=== PATIENT | male | born 1985 | race Caucasian/White ===

== ENCOUNTER 2018-03-24 15:48 | Emergency (ER) | payer BC ==
[2018-03-24] MEDS ORDERED: HYDROCODONE/APAP 5/325 MG TAB ONE (17:44)
[2018-03-24] MEDS ORDERED: HYDROCODONE/APAP 7.5/325 MG TAB ONE (17:45)
[2018-03-24 18:16] LABS: Absolute Lymphocytes (CBC) 2.2 K/uL (0.7-4.9); Absolute Monocytes 1.1 K/uL (0.1-1.3); Absolute Neutrophil 10.7 K/uL (1.8-8.0); Basophils % 0.7 % (0-1.3); Eosinophils % 1.9 % (0-4.4); MCH 29.9 pg (27.0-35.0); MCV 88.6 fL (80-100); MPV 8.1 fL (7.6-11.3); Monocytes % 7.9 % (3.3-12.3); RBC Red Blood Cell Count 4.74 M/uL (4.33-5.43)
[2018-03-24 18:19] LABS: BUN Blood Urea Nitrogen 11 mg/dL (7-18); Bicarbonate 30 mmol/L (21-32); Creatine Phosphokinase 104 U/L (39-308); Glucose Level 65 mg/dL (74-106); Potassium 4.3 mmol/L (3.5-5.1); Sodium Level 140 mmol/L (136-145)
--- NOTE | 2018-03-24 18:52 | ER ---
Nurse's Notes [facility] Name: Albert Geronimo Age: 32 yrs Sex: Male : 1985 Arrival Date: 03/24/2018 Time: 15:52 Bed 12 Private MD: None, None Diagnosis: Pain in left leg;Pain in right leg Presentation: 03/24 15:58 Presenting complaint: Patient states: Swelling to bilateral calves since last night. aj reports that the swelling has improved significantly today after she treated the patient with essential oils. Bilateral lower legs appear to have little to no swelling or redness. Transition of care: patient was not received from another setting of care. Onset of symptoms was March 23, 2018. Risk Assessment: Do you want to hurt yourself or someone else? Patient reports no desire to harm self or others. Initial Sepsis Screen: Does the patient meet any 2 criteria? No. Patient's initial sepsis screen is negative. Does the patient have a suspected source of infection? No. Patient's initial sepsis screen is negative. Care prior to arrival: None. 15:58 Method Of Arrival: Ambulatory 15:58 Acuity: AMILCAR 4 Triage Assessment: 16:00 General: Appears in no apparent distress. comfortable, Behavior is calm, cooperative, aj appropriate for age. Pain: Complains of pain in right calf and left calf. Neuro: Level of Consciousness is awake, alert, obeys commands, Oriented to person, place, time, situation, Appropriate for age. Respiratory: Airway is patent Respiratory effort is even, unlabored, Respiratory pattern is regular, symmetrical. Derm: Skin is intact, is healthy with good turgor, Skin is pink, warm \T\ dry. normal. Historical: - Allergies: 16:00 No Known Allergies; aj - Home Meds: 16:00 None [Active]; aj - PMHx: 16:00 None; aj - PSHx: 16:00 None; aj - Immunization history:: Adult Immunizations up to date. - Social history:: Smoking status: Patient uses tobacco products, smokes one pack cigarettes per day. Patient uses alcohol, on a daily basis. - Ebola Screening: : Patient negative for fever greater than or equal to 101.5 degrees Fahrenheit, and additional compatible Ebola Virus Disease symptoms Patient denies exposure to infectious person Patient denies travel to an Ebola-affected area in the 21 days before illness onset No symptoms or risks identified at this time. Screenin:55 Abuse screen: Denies threats or abuse. Denies injuries from another. Nutritional iw screening: No deficits noted. Tuberculosis screening: No symptoms or risk factors identified. Fall Risk IV access (20 points). Assessment: 17:30 General: Appears in no apparent distress. Behavior is calm, cooperative. Pain: iw Complains of pain in right leg and left leg. Neuro: Level of Consciousness is awake, alert, obeys commands, Oriented to person, place, time, Moves all extremities. Full function. Cardiovascular: Patient's skin is warm and dry. Respiratory: Respiratory effort is even, unlabored, Respiratory pattern is regular, symmetrical. GI: Abdomen is non-distended. Derm: Skin is intact, is healthy with good turgor. Musculoskeletal: Range of motion: intact in all extremities. 18:48 Reassessment: Patient appears in no apparent distress at this time. Patient and/or iw family updated on plan of care and expected duration. Pain level reassessed. Patient is alert, oriented x 3, equal unlabored respirations, skin warm/dry/pink. Vital Signs: 16:00 BP 98 / 71; Pulse 108; Resp 17; Temp 98.8; Pulse Ox 99% on R/A; Weight 74.84 kg; Height aj 6 ft. 4 in. (193.04 cm); 18:48 BP 124 / 87; Pulse 98; Resp 16; Pulse Ox 98% ; Pain 5/10; iw 16:00 Body Mass Index 20.08 (74.84 kg, 193.04 cm) ED Course: 15:52 Patient arrived in ED. mr 15:53 None, None is Private Physician. mr 15:59 Triage completed. aj 16:00 Arm band placed on right wrist. Patient placed in waiting room, Patient notified of aj wait time. 16:00 Patient has correct armband on for positive identification. iw 16:50 Bradley Kee MD is Attending Physician. kdr 17:15 Georgina Olivares, RN is Primary Nurse. iw 18:59 No provider procedures requiring assistance completed. IV discontinued, intact, iw bleeding controlled, No redness/swelling at site. Pressure dressing applied. Administered Medications: 17:46 Drug: [place] (7.5 mg-325 mg) 1 tabs Route: PO; iw Outcome: 18:51 Discharge ordered by . kdr 18:59 Discharged to home ambulatory, with family. iw 18:59 Condition: good 18:59 Discharge instructions given to patient, family, Instructed on discharge instructions, follow up and referral plans. medication usage, Demonstrated understanding of instructions, follow-up care, medications, Prescriptions given X 2. 19:00 Patient left the ED. iw Signatures: Leah Nowak RN RN Bradley Levine MD MD kdr Barajas Juliet Georgina Childers RN RN iw Corrections: (The following items were deleted from the chart) 19:33 19:33 Patient left the ED. iw iw
--- NOTE | 2018-03-24 18:52 | EDPHYS ---
Physician Documentation [facility] Name: Albert Geronimo Age: 32 yrs Sex: Male : 1985 Arrival Date: 03/24/2018 Time: 15:52 Bed 12 Private MD: None, None ED Physician Bradley Kee HPI: 03/25 12:45 This 32 yrs old Male presents to ER via Ambulatory with complaints of Leg kdr Swelling. 12:45 The patient presents with pain, that is acute. The complaints affect the left calf, kdr right calf. Context: No known injury or precipitating events!. 12:46 Onset: The symptoms/episode began/occurred last night. Modifying factors: The symptoms kdr are alleviated by nothing. the symptoms are aggravated by movement, weight bearing. Associated signs and symptoms: Pertinent positives: calf tenderness, Pertinent negatives fever, nausea, numbness, rash, swelling, vomiting, warmth, weakness. Treatment prior to arrival includes: over the counter medications. Severity of symptoms: At their worst the symptoms were moderate, in the emergency department the symptoms are unchanged. The patient has not experienced similar symptoms in the past. The patient has not recently seen a physician. Historical: - Allergies: 03/24 16:00 No Known Allergies; aj - Home Meds: 16:00 None [Active]; aj - PMHx: 16:00 None; aj - PSHx: 16:00 None; aj - Immunization history:: Adult Immunizations up to date. - Social history:: Smoking status: Patient uses tobacco products, smokes one pack cigarettes per day. Patient uses alcohol, on a daily basis. - Ebola Screening: : Patient negative for fever greater than or equal to 101.5 degrees Fahrenheit, and additional compatible Ebola Virus Disease symptoms Patient denies exposure to infectious person Patient denies travel to an Ebola-affected area in the 21 days before illness onset No symptoms or risks identified at this time. ROS: 03/25 12:46 Constitutional: Negative for fever, chills, and weight loss, Eyes: Negative for injury, kdr pain, redness, and discharge, Neck: Negative for injury, pain, and swelling, Cardiovascular: Negative for chest pain, palpitations, and edema. MS/extremity: Positive for pain, tenderness, of the right calf and left calf. Exam: 12:46 Constitutional: This is a well developed, well nourished patient who is awake, alert, kdr and in no acute distress. Head/Face: Normocephalic, atraumatic. Eyes: Pupils equal round and reactive to light, extra-ocular motions intact. Lids and lashes normal. Conjunctiva and sclera are non-icteric and not injected. Cornea within normal limits. Periorbital areas with no swelling, redness, or edema. Neck: Trachea midline, no thyromegaly or masses palpated, and no cervical lymphadenopathy. Supple, full range of motion without nuchal rigidity, or vertebral point tenderness. No Meningismus. Chest/axilla: Normal chest wall appearance and motion. Nontender with no deformity. No lesions are appreciated. Cardiovascular: Regular rate and rhythm with a normal S1 and S2. No gallops, murmurs, or rubs. Normal PMI, no JVD. No pulse deficits. Respiratory: Lungs have equal breath sounds bilaterally, clear to auscultation and percussion. No rales, rhonchi or wheezes noted. No increased work of breathing, no retractions or nasal flaring. Abdomen/GI: Soft, non-tender, with normal bowel sounds. No distension or tympany. No guarding or rebound. No evidence of tenderness throughout. Back: No spinal tenderness. No costovertebral tenderness. Full range of motion. Skin: Warm, dry with normal turgor. Normal color with no rashes, no lesions, and no evidence of cellulitis. Neuro: Awake and alert, GCS 15, oriented to person, place, time, and situation. Cranial nerves II-XII grossly intact. Motor strength 5/5 in all extremities. Sensory grossly intact. Cerebellar exam normal. Normal gait. Psych: Awake, alert, with orientation to person, place and time. Behavior, mood, and affect are within normal limits. 12:46 Musculoskeletal/extremity: Extremities: grossly normal except: Both calves are soft with no evidence of compartment syndrome. They are both tender to palpation, Weight bearing: able to fully bear weight, Hurts to walk but is otherwise able to ambulate.. Vital Signs: 03/24 16:00 BP 98 / 71; Pulse 108; Resp 17; Temp 98.8; Pulse Ox 99% on R/A; Weight 74.84 kg; Height aj 6 ft. 4 in. (193.04 cm); 18:48 BP 124 / 87; Pulse 98; Resp 16; Pulse Ox 98% ; Pain 5/10; iw 16:00 Body Mass Index 20.08 (74.84 kg, 193.04 cm) aj MDM: 18:51 Patient medically screened. kdr 03/25 12:46 Data reviewed: vital signs, nurses notes, lab test result(s). Counseling: I had a kdr detailed discussion with the patient and/or guardian regarding: the historical points, exam findings, and any diagnostic results supporting the discharge/admit diagnosis, lab results, the need for outpatient follow up. 03/24 17:15 Order name: CBC with Diff kdr 03/24 17:15 Order name: Chem 7; Complete Time: 18:20 kdr 03/24 17:15 Order name: CPK; Complete Time: 18:20 kdr 03/24 17:15 Order name: CBC with Automated Diff EDMS 03/24 19:07 Order name: Urine Dipstick--Ancillary (enter results) ms 03/24 19:08 Order name: Urine Dipstick-Ancillary EDMS 03/24 17:15 Order name: Urine Dipstick-Ancillary (obtain specimen); Complete Time: 18:47 kdr Administered Medications: 03/24 17:46 Drug: [place] (7.5 mg-325 mg) 1 tabs Route: PO; iw Disposition: 03/24/18 18:51 Discharged to Home. Impression: Pain in left leg, Pain in right leg. - Condition is Stable. - Discharge Instructions: Musculoskeletal Pain, Pain Without a Known Cause. - Prescriptions for Tramadol 50 mg Oral Tablet - take 1 tablet by ORAL route every 8 hours as needed; 12 tablet. Prednisone 20 mg Oral Tablet - take 2 tablets by ORAL route once daily for 4 days; 8 tablet. - Medication Reconciliation Form, Thank You Letter, Work release form form. - Follow up: Private Physician; When: 2 - 3 days; Reason: If symptoms return, Further diagnostic work-up, Recheck today's complaints, Continuance of care, Re-evaluation by your physician. - Problem is new. - Symptoms have improved. Signatures: Dispatcher [employer] EDMS Leah Nowak RN RN aj Rittger, Kevin, MD MD kdr Georgina Olivares RN RN iw Corrections: (The following items were deleted from the chart) 19:33 18:51 03/24/2018 18:51 Discharged to Home. Impression: Pain in left leg; Pain in right iw leg. Condition is Stable. Forms are Medication Reconciliation Form, Thank You Letter, Antibiotic Education, Prescription Opioid Use. Follow up: Private Physician; When: 2 - 3 days; Reason: If symptoms return, Further diagnostic work-up, Recheck today's complaints, Continuance of care, Re-evaluation by your physician. Problem is new. Symptoms have improved. kdr
[2018-03-24 19:23] LABS: Urine Blood TRACE (NEG); Urine Glucose NEGATIVE (NEG); Urine Protein NEGATIVE (NEG); Urine Specific Gravity 1.025 (1.005-1.030)
== END 2018-03-24 19:33 | disposition home or self-care (01) ==
LOC: ER 15:48
DX: M79.604 Pain in right leg (principal); F17.210 Nicotine dependence, cigarettes, uncomplicated
CPT/HCPCS: 36415; 80048; 81003; 82550; 85025; 99283